=== PATIENT | female | born 1990 | race Caucasian/White ===

== ENCOUNTER 2020-11-17 15:08 | Outpatient (REF) | payer OTHER, SELFPAY | END 2020-11-17 15:09 | disposition home or self-care (01) | LOC: HO.LAB 15:08 | PROVIDERS: PCP Hospitalist; Visit Provider Internal Medicine | DX: Z20.828 Contact with and (suspected) exposure to other viral communicable diseases (principal) | CPT/HCPCS: C9803; U0003 ==

== ENCOUNTER 2021-01-03 17:19 | Emergency (ER) | payer OTHER, SELFPAY ==
--- NOTE | ~2021-01-03 | XR_ITS ---
EXAMINATION: XR CHEST CLINICAL INFORMATION: Respiratory symptoms. COMPARISON: None TECHNIQUE: Frontal view of the chest was obtained. FINDINGS: Focal airspace consolidation within the right lower lung, consistent with pneumonia. Findings may be within the right middle or right lower lobe. No pleural effusion or pneumothorax. Unremarkable cardiomediastinal silhouette. No acute osseous abnormality. XR/XR chest 1V IMPRESSION: Focal pneumonia within the right lower lung.
--- NOTE | ~2021-01-03 | CT_ITS ---
EXAMINATION: CTA CHEST PE STUDY CLINICAL INFORMATION: Elevated D-dimer COMPARISON: No pertinent prior studies are available for comparison. TECHNIQUE: Prior to contrast administration, noncontrast localization images were obtained. After the administration of 70 mL of Omnipaque 350 IV contrast, contiguous thin slice helical images were obtained through the thorax. Reformatted MIP images in the coronal and sagittal planes were obtained at the acquisition workstation. This CT examination was performed using dose optimization techniques as appropriate, variously including the following: *Automated exposure control *Adjustment of mA and/or kV according to patient size (this includes techniques or standardized protocols for targeted exams where dose is matched to indication/reason for exam; i.e. extremities or head) *Use of iterative reconstruction technique DLP: 562 mGy-cm. FINDINGS: The bolus timing on this study was acceptable for visualization of the pulmonary arterial tree. There are no intraluminal pulmonary arterial filling defects present to suggest pulmonary embolism. Patchy groundglass airspace disease is seen more so in the dependent right and left lower lobes. Infectious etiology is suspected. No abnormal pulmonary nodules or masses are appreciated. No significant hilar or mediastinal adenopathy. There is no evidence of pleural effusion or pneumothorax. The heart is normal in size. No evidence of ventricular septal bowing or right heart strain. Great vessels are normal. Otherwise the mediastinum is unremarkable. There is no pericardial effusion or pericardial thickening. Limited evaluation of the upper abdominal viscera is unremarkable. CT/CT angio chest PE protocol IMPRESSION: No evidence for pulmonary emboli. Patchy bilateral airspace disease right more so than left with a posterior dependent predominance. Atypical or viral infectious etiologies would be suspected. VTE: Negative
[2021-01-03 17:34] VITALS: BP 108/64; PULSE 110; RESP 16; TEMP 37.2; O2SAT 95; BMI 45.6
--- NOTE | 2021-01-03 17:36 | ED.URI ---
HPI - URI/Sore Throat General Chief Complaint: Upper Respiratory Symptoms Stated Complaint: Chest pain Time Seen by Provider: 01/03/21 20:35 Source: patient Mode of arrival: ambulatory Limitations: language barrier History of Present Illness HPI Narrative: 30-year-old female with past medical history of obesity presents with 2 days of upper respiratory symptoms, nonproductive cough, chest pain, chest pain on inspiration and fatigue. She does not take any medications, denies past surgical history, and does not report any sick contacts. MD elicited complaint: cough Onset (ago): day(s) (2) Consistency: intermittent Severity: moderate Able to tolerate fluids by mouth: Yes Exacerbating factors: exertion and deep breaths Relieving factors: nothing Associated symptoms: denies other symptoms Treatments prior to arrival: none Related Data Previous Rx's Medication Instructions Recorded azithromycin 250 mg PO DAILY 4 Days #4 tab 01/03/21 benzonatate [Tessalon Perles] 100 mg PO TID PRN #20 cap 01/03/21 cefuroxime axetil 500 mg PO Q12H 7 Days #14 tab 01/03/21 Allergies Allergy/AdvReac Type Severity Reaction Status Date / Time No Known Allergies Allergy Verified 01/03/21 17:35 Review of Systems Review of Systems: Constitutional: No Fever, positive Chills, positive fatigue, positive Malaise ENT/Mouth: No sore throat, no runny nose Eyes: No Discharge Cardiovascular: Positive Chest Pain, No SOB Respiratory: No Cough, No Sputum, No Wheezing, No Smoke Exposure, No Dyspnea Gastrointestinal: No Nausea, No Vomiting, No Diarrhea Genitourinary: no irregular bleeding, No Dysuria, No Urinary Frequency, No Hematuria, No Urinary Incontinence, No Urgency, No Flank Pain, Musculoskeletal: positive Myalgia Skin: No rash Neuro: No Headache Yes all other systems are reviewed and are negative PMFSH Past Medical History Attestation statement: The following information was validated with the patient. Source: old records reviewed Surgical History No pertinent past surgical history Family History Family History Father No problems noted. Mother Diabetes Hypertension Sister In good health Brother In good health Social History Social History Alcohol intake: never Smoking Status: Never smoker Smoked in Last 30 Days: No Use of substances other than those prescribed or required for medical reasons: No Advance Directives: No Advance Directives Information Provided: Yes Physical Exam Vital Signs: Vital Signs: Last Vital Signs Temp 97.9 F 01/03/21 22:00 Pulse 88 01/03/21 22:00 Resp 16 01/03/21 22:00 BP 122/71 01/03/21 22:00 Pulse Ox 97 01/03/21 22:00 Body Mass Index 45.6 Appearance: Alert. Oriented X3. No acute distress. Eyes: Pupils equal, round and reactive to light. ENT: Pharynx normal. Neck: Normal inspection. Neck supple. CVS: Normal heart rate and rhythm. Pulses normal. Respiratory: No respiratory distress. Breath sounds normal. Abdomen: Soft and nontender. Skin: Skin warm and dry. Normal skin color. Normal skin turgor. Extremities: No lower extremity edema. Neuro: No motor deficit. No sensory deficit. Course Course Course Narrative: 30-year-old female with morbid obesity and no significant past medical history presents with several days of upper respiratory symptoms, sharp chest pain, chest pain on inspiration and fatigue. Plan of care is to rule out ACS, D-dimer, COVID swab. X-ray positive for right lower lobe pneumonia, D-dimer is positive at 374, will order CTA to PE. COVID test is positive. 9:[address] a still pending. CTA negative. Plan of care is to discharge home. educational interpreter utilized for all correspondence. Google translate utilize her discharge instructions. Patient verbalized understanding of discharge instructions and agrees plan of care discharge home. MDM - URI/Sore Throat Differential Diagnosis Differential diagnosis: Likely upper respiratory infection, viral infection, bronchitis and influenza Medical Records Attestation: I reviewed the patient's medical records. Lab Data Attestation: I reviewed the patient's lab results. Result diagrams: 01/03/21 18:17 01/03/21 18:17 Labs: Lab Results 01/03/21 01/03/21 01/03/21 Range/Units 18:17 18:17 18:17 WBC 4.2 L (4.8-10.8) X10*3/uL RBC 4.20 (4.20-5.50) X10*6/uL Hgb 11.8 L (12.0-16.0) g/dl Hct 36.4 L (37-47) % MCV 86.7 (80-98) fL MCH 28.1 (27.0-33.0) pg MCHC 32.4 (31.0-35.0) g/dl RDW 14.8 (11.0-16.0) % Plt Count 179 (160-400) X10*3/uL MPV 9.5 (9.4-12.3) fL Immature Gran % (Auto) 0.2 (0.0-0.4) % Neut % (Auto) 67.3 (45-73) % Lymph % (Auto) 26.3 (20-40) % [place] % (Auto) 5.0 (2-11) % Eos % (Auto) 1.0 (0-4) % Baso % (Auto) 0.2 (0-2) % Lymph # (Auto) 1.1 L (1.2-4.9) X10*3/uL [place] # (Auto) 0.2 (0.1-1.2) X10*3/uL Eos # (Auto) 0.0 (0.0-0.4) X10*3/uL Baso # (Auto) 0.0 (0.0-0.2) X10*3/uL Abs Immat Gran (auto) 0.01 (0.00-0.03) X10*3/uL Absolute Neuts (auto) 2.8 (2.0-8.3) X10*3/uL Absolute Nucleated RBC 0.000 (0.0-0.012) X10*3/uL Nucleated RBC % (auto) 0.0 (0.0-0.2) /100WBC PT 13.4 H (10.8-13.0) SEC INR 1.1 (0.9-1.1) APTT 30.4 (24.1-38.0) SEC D-Dimer 374 NG/ML Sodium 138 (135-145) mmol/L Potassium 4.1 (3.3-5.1) mmol/L Chloride 105 (96-108) mmol/L Carbon Dioxide 26 (22-29) mmol/L Anion Gap 11 L (12-20) BUN 11 (9-16) mg/dL Creatinine 0.78 (0.5-1.4) mg/dL Estim Creat Clear Calc 157.3 Estimated GFR > 60 Random Glucose 114 (60-115) mg/dL Calcium 8.1 L (8.4-10.2) mg/dL Troponin I High Sens (<3.5-17.0) ng/L Urine Color Urine Appearance Urine pH (5.0-8.0) Ur Specific Diller (1.005-1.025) Urine Protein (NEG-TRACE) MG/DL Urine Glucose (UA) (NEG) MG/DL Urine Ketones (NEG) MG/DL Urine Blood (NEG) Urine Nitrite (NEG) Ur Leukocyte Esterase (NEG) Urine Test (NEGATIVE) Coronavirus (PCR) (Negative) Influenza Type A (PCR) (Negative) Influenza Type B (PCR) (Negative) RSV RNA Qual (PCR) (Negative) 01/03/21 01/03/21 01/03/21 Range/Units 18:17 18:17 20:13 WBC (4.8-10.8) X10*3/uL RBC (4.20-5.50) X10*6/uL Hgb (12.0-16.0) g/dl Hct (37-47) % MCV (80-98) fL MCH (27.0-33.0) pg MCHC (31.0-35.0) g/dl RDW (11.0-16.0) % Plt Count (160-400) X10*3/uL MPV (9.4-12.3) fL Immature Gran % (Auto) (0.0-0.4) % Neut % (Auto) (45-73) % Lymph % (Auto) (20-40) % [place] % (Auto) (2-11) % Eos % (Auto) (0-4) % Baso % (Auto) (0-2) % Lymph # (Auto) (1.2-4.9) X10*3/uL [place] # (Auto) (0.1-1.2) X10*3/uL Eos # (Auto) (0.0-0.4) X10*3/uL Baso # (Auto) (0.0-0.2) X10*3/uL Abs Immat Gran (auto) (0.00-0.03) X10*3/uL Absolute Neuts (auto) (2.0-8.3) X10*3/uL Absolute Nucleated RBC (0.0-0.012) X10*3/uL Nucleated RBC % (auto) (0.0-0.2) /100WBC PT (10.8-13.0) SEC INR (0.9-1.1) APTT (24.1-38.0) SEC D-Dimer NG/ML Sodium (135-145) mmol/L Potassium (3.3-5.1) mmol/L Chloride (96-108) mmol/L Carbon Dioxide (22-29) mmol/L Anion Gap (12-20) BUN (9-16) mg/dL Creatinine (0.5-1.4) mg/dL Estim Creat Clear Calc Estimated GFR Random Glucose (60-115) mg/dL Calcium (8.4-10.2) mg/dL Troponin I High Sens < 3.5 (<3.5-17.0) ng/L Urine Color YELLOW Urine Appearance CLEAR Urine pH 7.0 (5.0-8.0) Ur Specific Diller 1.020 (1.005-1.025) Urine Protein NEG (NEG-TRACE) MG/DL Urine Glucose (UA) NEG (NEG) MG/DL Urine Ketones NEG (NEG) MG/DL Urine Blood NEG (NEG) Urine Nitrite NEG (NEG) Ur Leukocyte Esterase NEG (NEG) Urine Test (NEGATIVE) Coronavirus (PCR) POSITIVE A (Negative) Influenza Type A (PCR) NEGATIVE (Negative) Influenza Type B (PCR) NEGATIVE (Negative) RSV RNA Qual (PCR) NEGATIVE (Negative) 01/03/21 Range/Units 20:16 WBC (4.8-10.8) X10*3/uL RBC (4.20-5.50) X10*6/uL Hgb (12.0-16.0) g/dl Hct (37-47) % MCV (80-98) fL MCH (27.0-33.0) pg MCHC (31.0-35.0) g/dl RDW (11.0-16.0) % Plt Count (160-400) X10*3/uL MPV (9.4-12.3) fL Immature Gran % (Auto) (0.0-0.4) % Neut % (Auto) (45-73) % Lymph % (Auto) (20-40) % [place] % (Auto) (2-11) % Eos % (Auto) (0-4) % Baso % (Auto) (0-2) % Lymph # (Auto) (1.2-4.9) X10*3/uL [place] # (Auto) (0.1-1.2) X10*3/uL Eos # (Auto) (0.0-0.4) X10*3/uL Baso # (Auto) (0.0-0.2) X10*3/uL Abs Immat Gran (auto) (0.00-0.03) X10*3/uL Absolute Neuts (auto) (2.0-8.3) X10*3/uL Absolute Nucleated RBC (0.0-0.012) X10*3/uL Nucleated RBC % (auto) (0.0-0.2) /100WBC PT (10.8-13.0) SEC INR (0.9-1.1) APTT (24.1-38.0) SEC D-Dimer NG/ML Sodium (135-145) mmol/L Potassium (3.3-5.1) mmol/L Chloride (96-108) mmol/L Carbon Dioxide (22-29) mmol/L Anion Gap (12-20) BUN (9-16) mg/dL Creatinine (0.5-1.4) mg/dL Estim Creat Clear Calc Estimated GFR Random Glucose (60-115) mg/dL Calcium (8.4-10.2) mg/dL Troponin I High Sens (<3.5-17.0) ng/L Urine Color Urine Appearance Urine pH (5.0-8.0) Ur Specific [place]iller (1.005-1.025) Urine Protein (NEG-TRACE) MG/DL Urine Glucose (UA) (NEG) MG/DL Urine Ketones (NEG) MG/DL Urine Blood (NEG) Urine Nitrite (NEG) Ur Leukocyte Esterase (NEG) Urine Test NEGATIVE (NEGATIVE) Coronavirus (PCR) (Negative) Influenza Type A (PCR) (Negative) Influenza Type B (PCR) (Negative) RSV RNA Qual (PCR) (Negative) Imaging Data Chest x-ray: Attestation: I personally reviewed and interpreted this imaging study as follows: Radiologist's impression: EXAMINATION: XR CHEST CLINICAL INFORMATION: Respiratory symptoms. COMPARISON: None TECHNIQUE: Frontal view of the chest was obtained. FINDINGS: Focal airspace consolidation within the right lower lung, consistent with pneumonia. Findings may be within the right middle or right lower lobe. No pleural effusion or pneumothorax. Unremarkable cardiomediastinal silhouette. No acute osseous abnormality. XR/XR chest 1V IMPRESSION: Focal pneumonia within the right lower lung. CT PE study: Attestation: I personally reviewed and interpreted this imaging study as follows: Radiologist's impression: EXAMINATION: CTA CHEST PE STUDY CLINICAL INFORMATION: Elevated D-dimer COMPARISON: No pertinent prior studies are available for comparison. TECHNIQUE: Prior to contrast administration, noncontrast localization images were obtained. After the administration of 70 mL of Omnipaque 350 IV contrast, contiguous thin slice helical images were obtained through the thorax. Reformatted MIP images in the coronal and sagittal planes were obtained at the acquisition workstation. This CT examination was performed using dose optimization techniques as appropriate, variously including the following: *Automated exposure control *Adjustment of mA and/or kV according to patient size (this includes techniques or standardized protocols for targeted exams where dose is matched to indication/reason for exam; i.e. extremities or head) *Use of iterative reconstruction technique DLP: 562 mGy-cm. FINDINGS: The bolus timing on this study was acceptable for visualization of the pulmonary arterial tree. There are no intraluminal pulmonary arterial filling defects present to suggest pulmonary embolism. Patchy groundglass airspace disease is seen more so in the dependent right and left lower lobes. Infectious etiology is suspected. No abnormal pulmonary nodules or masses are appreciated. No significant hilar or mediastinal adenopathy. There is no evidence of pleural effusion or pneumothorax. The heart is normal in size. No evidence of ventricular septal bowing or right heart strain. Great vessels are normal. Otherwise the mediastinum is unremarkable. There is no pericardial effusion or pericardial thickening. Limited evaluation of the upper abdominal viscera is unremarkable. CT/CT angio chest PE protocol IMPRESSION: No evidence for pulmonary emboli. Patchy bilateral airspace disease right more so than left with a posterior dependent predominance. Atypical or viral infectious etiologies would be suspected. VTE: Negative ECG Data Attestation: I personally reviewed and interpreted this ECG as follows: ECG interpretation date: 01/03/21 ECG interpretation time: 17:56 Interpretation: Vent. rate 100 BPM DE interval 130 ms QRS duration 86 ms QT/QTc 336/433 ms P-R-T axes 52 28 25 Normal sinus rhythm Normal ECG No previous ECGs available Discharge Plan Discharge Clinical Impression: Pneumonia, COVID-19 Patient Disposition: Home, Self-Care Instructions: Pneumonia (ED), COVID-19 (Coronavirus Disease 2019) (ED) Additional Instructions: Te evaluaron por dolor en el pecho del lado derecho. Usted es positivo para COVID-19. Por favor, mantenga el aislamiento social seg?n las pautas estatales y federales. Las radiograf?as indican neumon?a. Por favor, tome azitromicina y cefuroxime dirigidos. Estos medicamentos son antibi?ticos y es necesario completar ambos cursos de antibi?ticos para ally cobertura adecuada. Use inhalador de albuterol seg?n sea necesario para la dificultad para respirar. Use Tessalon Perles para toser. Utilice gómez espir?metro de incentivo para ayudar a promover la funci?n pulmonar. Utilice martinez espir?metro de incentivo 10 veces por hora mientras est? despierto. Si los s?ntomas empeoran, tiene dificultad para respirar, debilidad o cualquier otro s?ntoma relacionado, por favor regrese al departamento de emergencias inmediatamente. [place] por elegir martinez departamento de emergencias para la evaluaci?n. Por favor, zack un seguimiento con el m?dico de atenci?n primaria seg?n sea necesario. Regrese al servicio de urgencias para cualquier s?ntoma nuevo, preocupante o que empeore. You were evaluated for right-sided chest pain. You are positive for COVID-19. Please maintain social isolation per State and Federal guidelines. X-rays indicates pneumonia. Please take azithromycin and cefuroxime directed. These medications are antibiotics and you need to complete both courses of antibiotics for proper coverage. Use albuterol inhaler as needed for shortness of breath. Use Tessalon Perles for coughing. Please use your incentive spirometer to help promote lung function. Use this incentive spirometer 10 times an hour while awake. If symptoms get worse, you have shortness of breath, weakness or any other concerning symptoms please return to the emergency department immediately. Thank you for choosing this emergency department for evaluation. Please follow-up with primary care physician as needed. Return to the emergency department for any new, concerning, or worsening symptoms. Prescriptions: New cefuroxime axetil 500 mg tablet 500 mg PO Q12H 7 Days Qty: 14 RF: 0 azithromycin 250 mg tablet 250 mg PO DAILY 4 Days Qty: 4 RF: 0 benzonatate [Tessalon Perles] 100 mg capsule 100 mg PO TID PRN (Reason: cough) Qty: 20 RF: 0 Interventions: ED Discharge Assessment Last Done: 01/03/21 23:08 Discharge Date/Time: 01/03/21 23:09
--- NOTE | 2021-01-03 17:39 | ECG_ITS ---
Test Reason : DISPENA Blood Pressure : / mmHG Vent. Rate : 100 BPM Atrial Rate : 100 BPM P-R Int : 130 ms QRS Dur : 086 ms QT Int : 336 ms P-R-T Axes : 052 028 025 degrees QTc Int : 433 ms Normal sinus rhythm Normal ECG No previous ECGs available Referred By: Anika Tam Electronically Signed By:WILBER KILPATRICK MD
[2021-01-03 18:24] LABS: MANUAL DIFF FLAG NO
[2021-01-03 18:25] LABS: Basophils Percent Auto 0.2 % (0-2); Hematocrit 36.4 % (37-47); Hemoglobin 11.8 g/dl (12.0-16.0); Imm Gran Abs Auto 0.01 X10*3/uL (0.00-0.03); Imm Gran Pct Auto 0.2 % (0.0-0.4); Lymphocytes Absolute Auto 1.1 X10*3/uL (1.2-4.9); Lymphocytes Percent Auto 26.3 % (20-40); Mean Corpuscular HGB Conc 32.4 g/dl (31.0-35.0); Mean Corpuscular Hemoglobin 28.1 pg (27.0-33.0); Mean Corpuscular Volume 86.7 fL (80-98); Mean Platelet Volume 9.5 fL (9.4-12.3); Monocytes Absolute Auto 0.2 X10*3/uL (0.1-1.2); Neutrophils Absolute Auto 2.8 X10*3/uL (2.0-8.3); Neutrophils Percent Auto 67.3 % (45-73); Platelet Count 179 X10*3/uL (160-400); Red Cell Distribution Width 14.8 % (11.0-16.0); White Blood Count 4.2 X10*3/uL (4.8-10.8)
[2021-01-03 18:33] LABS: INTERNATIONAL NORM RATIO 1.1 (0.9-1.1); Prothrombin Time 13.4 SEC (10.8-13.0)
[2021-01-03 18:36] LABS: D Dimer 374 NG/ML; Partial Thromboplastin Time 30.4 SEC (24.1-38.0)
[2021-01-03 18:45] LABS: Anion Gap 11 (12-20); Blood Urea Nitrogen 11 mg/dL (9-16); Calcium 8.1 mg/dL (8.4-10.2); Carbon Dioxide 26 mmol/L (22-29); Chloride 105 mmol/L (96-108); Creatinine Clr Calc Pharmacy 157.3; Estimated Glomerular Filt Rate > 60; Glucose Random 114 mg/dL (60-115); Potassium 4.1 mmol/L (3.3-5.1); Sodium 138 mmol/L (135-145)
[2021-01-03 18:51] LABS: Troponin-I High Sensitivity < 3.5 ng/L (<3.5-17.0)
[2021-01-03 19:01] VITALS: BP 136/64; PULSE 98; RESP 16; TEMP 38.4; O2SAT 97
[2021-01-03 19:03] LABS: Influenza A PCR NEGATIVE (Negative); Influenza B PCR NEGATIVE (Negative); Resp Syncy Virus RNA Qual PCR NEGATIVE (Negative); SARS COV2 PCR INHOUSE POSITIVE (Negative)
--- NOTE | 2021-01-03 19:43 | PC.NURSE ---
ASSUMED CARE OF PT. PT RESTING IN STETCHER. PT AWAITING FOR CTA. PT ALERT, RESPIRATIONS N/L. SKIN W/D. WILL CONTINUE TO MONTIOR PT.
[2021-01-03] MEDS: Azithromycin 500 MG TABLET PO (19:53)
[2021-01-03] MEDS: Albuterol Sulfate 90 MCG 8 GM INHALER 2 PUFF INHALE (19:53)
[2021-01-03] MEDS: Benzonatate 100 MG CAPSULE 200 MG PO (19:53)
[2021-01-03] MEDS: Acetaminophen 325 MG TABLET 650 MG PO (19:53)
--- NOTE | 2021-01-03 19:59 | PC.NURSE ---
PT MEDICATED PER EMAR. PT RESTING QUIETLY IN NAD. WILL CONTINUE TO MONITOR PT.
[2021-01-03 20:23] LABS: Glucose Urine UA NEG (NEG); Leukocyte Esterase Urine NEG (NEG); Nitrite Urine NEG (NEG); Urine Blood NEG (NEG); Urine Ketones NEG (NEG); Urine Protein NEG (NEG-TRACE)
[2021-01-03 20:24] LABS: Appearance Urine CLEAR; Color Urine YELLOW
[2021-01-03 20:24] LABS: UPreg QC Valid OK
[2021-01-03 20:25] LABS: Urine Pregnancy NEGATIVE (NEGATIVE)
[2021-01-03 22:00] VITALS: BP 122/71; PULSE 88; RESP 16; TEMP 36.6; O2SAT 97
[2021-01-03] MEDS: iohexoL 350 MG/ML 100 ML INFUS..BTL IV (22:07)
--- NOTE | 2021-01-03 22:51 | PC.NURSE ---
PT AWAITING FOR DISCHARGE INSTRUCTIONS.
== END 2021-01-03 23:09 | disposition home or self-care (01) ==
PROVIDERS: Nurse Practitioner Family; Emergency Provider Emergency Medicine; PCP Hospitalist
DX: U07.1 COVID-19 (principal); J12.82 Pneumonia due to coronavirus disease 2019
CPT/HCPCS: 0241U; 36415; 71045; 71275; 80048; 81003; 81025; 84484; 85025; 85379; 85610; 85730; 93005; 99284; Q9967

== ENCOUNTER 2021-01-13 14:09 | Outpatient (REF) | payer OTHER, SELFPAY | END 2021-01-13 14:10 | disposition home or self-care (01) | LOC: HO.LAB 14:09 | PROVIDERS: PCP Hospitalist; Visit Provider Internal Medicine | DX: Z20.822 Contact with and (suspected) exposure to COVID-19 (principal) | CPT/HCPCS: 36415; C9803; U0003; U0005 ==

== ENCOUNTER 2021-01-28 14:24 | Outpatient (REF) | payer OTHER, SELFPAY | END 2021-01-28 14:25 | disposition home or self-care (01) | LOC: HO.LAB 14:24 | PROVIDERS: Visit Provider Hospitalist | DX: Z13.89 Encounter for screening for other disorder (principal) ==

== ENCOUNTER 2021-01-30 10:35 | Outpatient (REF) | payer OTHER, SELFPAY ==
[2021-01-30 11:39] LABS: Hematocrit 34.7 % (37-47); Hemoglobin 10.8 g/dl (12.0-16.0); Mean Corpuscular HGB Conc 31.1 g/dl (31.0-35.0); Mean Corpuscular Hemoglobin 27.7 pg (27.0-33.0); Mean Platelet Volume 9.9 fL (9.4-12.3); Platelet Count 298 X10*3/uL (160-400); Red Cell Distribution Width 16.3 % (11.0-16.0); White Blood Count 9.2 X10*3/uL (4.8-10.8)
[2021-01-30 12:01] LABS: Alanine Aminotransferase 11 U/L (0-31); Albumin Level 4.1 g/dL (3.5-5.0); Alkaline Phosphatase 57 U/L (39-117); Anion Gap 10 (12-20); Aspartate Amino Transferase 12 U/L (5-31); Bilirubin Direct 0.3 mg/dL (0.0-0.5); Bilirubin Total 0.6 mg/dL (0.0-1.0); Blood Urea Nitrogen 13 mg/dL (9-16); Carbon Dioxide 29 mmol/L (22-29); Chloride 106 mmol/L (96-108); Cholesterol 156 mg/dL; Estimated Glomerular Filt Rate > 60; Glucose Fasting 89 mg/dL (60-99); HDL Cholesterol 36 mg/dL; LDL Cholesterol Calculated 106 mg/dl; Potassium 4.3 mmol/L (3.3-5.1); Sodium 141 mmol/L (135-145); Total Protein 7.7 g/dL (6.5-8.0); Triglycerides 74 mg/dL
[2021-01-30 12:11] LABS: TSH reflex Free T4 1.11 uIU/mL (0.32-4.0)
== END 2021-01-30 10:36 | disposition home or self-care (01) ==
LOC: HO.LAB 10:35
PROVIDERS: PCP Hospitalist; Visit Provider Hospitalist
DX: Z00.00 Encounter for general adult medical examination without abnormal findings (principal)
CPT/HCPCS: 36415; 80048; 80061; 80076; 84443; 85027

== ENCOUNTER 2021-02-24 09:25 | Outpatient (REF) | payer OTHER, SELFPAY ==
[2021-02-24 10:03] LABS: MANUAL DIFF FLAG NO
[2021-02-24 10:13] LABS: Basophils Percent Auto 0.4 % (0-2); Eosinophils Absolute Auto 0.2 X10*3/uL (0.0-0.4); Eosinophils Percent Auto 1.9 % (0-4); Hematocrit 35.6 % (37-47); Hemoglobin 10.9 g/dl (12.0-16.0); Imm Gran Abs Auto 0.05 X10*3/uL (0.00-0.03); Imm Gran Pct Auto 0.6 % (0.0-0.4); Lymphocytes Absolute Auto 1.9 X10*3/uL (1.2-4.9); Lymphocytes Percent Auto 22.4 % (20-40); Mean Corpuscular HGB Conc 30.6 g/dl (31.0-35.0); Mean Corpuscular Hemoglobin 27.3 pg (27.0-33.0); Mean Corpuscular Volume 89.2 fL (80-98); Mean Platelet Volume 9.7 fL (9.4-12.3); Monocytes Absolute Auto 0.5 X10*3/uL (0.1-1.2); Monocytes Percent Auto 5.7 % (2-11); Neutrophils Absolute Auto 5.9 X10*3/uL (2.0-8.3); Platelet Count 314 X10*3/uL (160-400); Red Blood Count 3.99 X10*6/uL (4.20-5.50); Red Cell Distribution Width 15.6 % (11.0-16.0); White Blood Count 8.6 X10*3/uL (4.8-10.8)
[2021-02-24 10:25] LABS: Alanine Aminotransferase 13 U/L (0-31); Albumin Level 3.9 g/dL (3.5-5.0); Alkaline Phosphatase 55 U/L (39-117); Anion Gap 10 (12-20); Aspartate Amino Transferase 11 U/L (5-31); Bilirubin Total 0.5 mg/dL (0.0-1.0); Blood Urea Nitrogen 13 mg/dL (9-16); Calcium 8.3 mg/dL (8.4-10.2); Carbon Dioxide 28 mmol/L (22-29); Chloride 108 mmol/L (96-108); Estimated Glomerular Filt Rate > 60; Glucose Random 106 mg/dL (60-115); Potassium 4.7 mmol/L (3.3-5.1); Sodium 141 mmol/L (135-145); Total Protein 7.6 g/dL (6.5-8.0)
== END 2021-02-24 09:26 | disposition home or self-care (01) ==
LOC: HO.LAB 09:25
PROVIDERS: PCP Hospitalist; Visit Provider Family Medicine
DX: N92.0 Excessive and frequent menstruation with regular cycle (principal); N39.0 Urinary tract infection, site not specified
CPT/HCPCS: 36415; 80053; 85025; 87086

== ENCOUNTER 2021-03-05 15:36 | Outpatient (REF) | payer OTHER, SELFPAY ==
--- NOTE | ~2021-03-05 | US_ITS ---
EXAMINATION:US pelvic complete CLINICAL INFORMATION: Reason for Exam N92.0 - Excessive and frequent menstruation with regular ... COMPARISON: No priors available. LMP: 03/01/2021 FINDINGS: UTERUS: The uterus is anteverted. Size: 7.4 x 3.6 cm. Uterine mass: There is no uterine mass. Cervix: Grossly unremarkable. Endometrium: No ultrasound evidence of endometrial lesion. endometrial thickness measures 0.7 cm ADNEXA: Normal Right ovary: Normal in size. Left ovary: Normal in size. Doppler exam: Normal Doppler flow identified in both ovaries. FREE FLUID: Trace amount of free fluid. OTHER FINDINGS: None US/US pelvic complete IMPRESSION: Patient declined transvaginal ultrasound. Transabdominal ultrasound is normal.
== END 2021-03-05 15:37 | disposition home or self-care (01) ==
LOC: HO.US 15:36
PROVIDERS: PCP Internal Medicine; Visit Provider Family Medicine
DX: N92.0 Excessive and frequent menstruation with regular cycle (principal)
CPT/HCPCS: 76856

== ENCOUNTER → 2021-03-13 12:31 | Outpatient (BNVA) | payer OTHER, SELFPAY | PROVIDERS: PCP Internal Medicine; Visit Provider Advanced Practice Midwife | DX: N92.0 Excessive and frequent menstruation with regular cycle (principal); N92.6 Irregular menstruation, unspecified; E66.01 Morbid (severe) obesity due to excess calories | CPT/HCPCS: 81025; 99202 ==

== ENCOUNTER 2021-08-27 08:52 | Outpatient (REF) | payer OTHER, SELFPAY ==
[2021-08-27 10:40] LABS: Hematocrit 34.3 % (37-47); Hemoglobin 10.7 g/dl (12.0-16.0); Mean Corpuscular HGB Conc 31.2 g/dl (31.0-35.0); Mean Corpuscular Hemoglobin 26.1 pg (27.0-33.0); Mean Corpuscular Volume 83.7 fL (80-98); Mean Platelet Volume 9.8 fL (9.4-12.3); Platelet Count 292 X10*3/uL (160-400); Red Cell Distribution Width 16.5 % (11.0-16.0); White Blood Count 9.5 X10*3/uL (4.8-10.8)
== END 2021-08-27 08:53 | disposition home or self-care (01) ==
LOC: HO.WFDLDS 08:52
PROVIDERS: Visit Provider Hospitalist
DX: D50.0 Iron deficiency anemia secondary to blood loss (chronic) (principal)
CPT/HCPCS: 36415; 85027

== ENCOUNTER 2022-10-16 18:04 | Emergency (ER) | payer OTHER, SELFPAY ==
--- NOTE | 2022-10-16 18:42 | ED.URI ---
HPI - URI/Sore Throat General Chief Complaint: General Medical Stated Complaint: fever,body aches Time Seen by Provider: 10/16/22 18:52 Source: patient Mode of arrival: ambulatory Limitations: no limitations History of Present Illness HPI Narrative: Patient is a 32 female with no past medical history, presenting to ED for complaints of fever, body aches, headache, nasal congestion, rhinorrhea with symptom onset yesterday. Reports that her friend is ill with similar symptoms. Related Data Previous Rx's Medication Instructions Recorded levonorgestrel-ethinyl estradiol 1 tab PO DAILY #84 tabs 03/13/21 0.1 mg-20 mcg tablet ferrous sulfate 325 mg (65 mg 325 mg PO BID 1 month #60 tabs 08/31/21 iron) tablet (Feosol) Allergies Allergy/AdvReac Type Severity Reaction Status Date / Time No Known Allergies Allergy Verified 08/27/21 08:43 Review of Systems Review of Systems: Constitutional: Positive fever. Positive chills. No weakness. Positive fatigue. Positive body aches ENT/ Mouth: No Ear Pain, positive Nasal Congestion, no sore throat, No Rhinorrhea, No Swallowing Difficulty Skin: No rash or itching. Cardiovascular: No chest pain. No palpitations. Respiratory: No shortness of breath. no cough. No sputum production. Gastrointestinal: No nausea. No vomiting. No diarrhea. No abdominal pain. Genitourinary: No burning micturition. No urinary frequency. Neurologic: No headache. No dizziness. No syncope. No numbness or tingling in the extremities. Yes all other systems are reviewed and are negative PMFSH Past Medical History Attestation statement: The following information was validated with the patient. Source: old records reviewed Surgical History No pertinent past surgical history Family History Family History Father No problems noted. Mother Diabetes Hypertension Sister In good health Brother In good health Social History Social History Alcohol intake: never Advance Directives: No Advance Directives Information Provided: Yes Gender identity: Female Physical Exam Vital Signs: Vital Signs: Last Vital Signs Temp 98.3 F 10/16/22 18:47 Pulse 94 10/16/22 18:47 Resp 18 10/16/22 18:47 BP 125/64 10/16/22 18:47 Pulse Ox 97 10/16/22 18:47 O2 Del Method 10/16/22 18:47 BMI result Body Mass Index 45.6 Vital signs have been reviewed as normal and appeared to be correct. Blood pressure normal.? Heart rate normal.? Respiration rate normal. Temperature normal.? Oxygen saturation normal. Appearance: Alert.?Oriented to person, place and time. No acute distress.?Normal affect. Eyes: Pupils equal, round and reactive to light.? ENT: TM normal bilaterally. Pharynx normal.?? Neck: Normal inspection.? Neck supple.??No cervical adenopathy CVS: Heart sounds normal. Normal heart rate and rhythm.? Pulses normal.?? Respiratory: No respiratory distress.? Lung sounds clear to auscultation bilaterally?? Abdomen: Soft and non-tender. Normoactive bowel sounds. Skin: Skin warm and dry.? Normal skin color.? ? Extremities: No lower extremity edema.? Neuro: Moves all extremities spontaneously. Sensation intact bilaterally. No motor deficits. Ambulates with normal steady gait. Course Course Course Narrative: Patient is a 32-year-old female with no past medical history, presenting for evaluation of upper respiratory symptoms. COVID-19 testing negative. Influenza testing positive. Offered Tamiflu, reviewed indications and possible side effects, patient declined. At this time history and physical exam not consistent with ACS/PE/pneumonia. Well-appearing, nontoxic, afebrile, no tachycardia or tachypnea/hypoxia. Speaking clear full sentences, ambulatory with steady gait. Discussed conservative treatment including rest, hydration, Tylenol/ibuprofen as needed for fever and body aches, saline nasal spray, humidifier, [id number] cold medication. Advised to follow-up with primary care provider as needed, discussed reasons to return back to the emergency department. All questions were answered. Patient discharged home in stable condition. MDM - URI/Sore Throat Medical Records Attestation: I reviewed the patient's medical records. Lab Data Attestation: I reviewed the patient's lab results. Labs: Lab Results 10/16/22 10/16/22 Range/Units 18:53 18:53 COVID-19 (RICHARD) Negative (Negative) COVID-19 Clin Com See Note Influenza Type A (FAYE) Positive A (Negative) Influenza Type B (FAYE) Negative (Negative) Influenza A & B Note See Note Discharge Plan Discharge Clinical Impression: Influenza A Patient Disposition: Home, Self-Care Instructions: Upper Respiratory Infection (ED), Influenza (ED) Additional Instructions: Be sure to rest, stay well hydrated drinking plenty of fluids, eat small frequent meals. You can take ibuprofen 200 mg, 3 tablets (600mg) every 6-8 hours as needed for pain, in addition to Tylenol 500 mg, 2 tablets (1,000mg) every 4-6 hours as needed for pain, but not to exceed 3 doses daily (3,000mg).? [id number] cold medications may be helpful as well for symptoms. Saline nasal spray, humidifier may be helpful for nasal congestion. You may return to the emergency department with any new or worsening symptoms or concerns. Follow-up with your primary care provider as needed. Prescriptions: No Action ferrous sulfate [Feosol] 325 mg (65 mg iron) tablet 325 mg PO BID 30 Days Qty: 60 1RF levonorgestrel-ethinyl estrad 0.1-20 mg-mcg tablet 1 tab PO DAILY Qty: 84 4RF Referrals: Emily Ho NP [Primary Care Provider] -
[2022-10-16 18:47] VITALS: BP 125/64; PULSE 94; RESP 18; TEMP 36.8; O2SAT 97; BMI 45.6
[2022-10-16 19:13] LABS: COVID-19 Test Negative (Negative); IDNOW Serial# 16C4AD1C
[2022-10-16 19:16] LABS: IDNOW Serial# BCCEAD1C; Influenza A Positive (Negative); Influenza B2 Negative (Negative)
== END 2022-10-16 19:23 | disposition home or self-care (01) ==
LOC: HO.ED 19:00
PROVIDERS: Nurse Practitioner Family; Emergency Provider Emergency Medicine; PCP Hospitalist
DX: J11.1 Influenza due to unidentified influenza virus with other respiratory manifestations (principal); R50.9 Fever, unspecified; Z20.822 Contact with and (suspected) exposure to COVID-19
CPT/HCPCS: 87502; 87635; 99282; 99283

== ENCOUNTER 2023-04-13 06:36 | Emergency (ER) | payer OTHER, SELFPAY ==
--- NOTE | ~2023-04-13 | CT_ITS ---
EXAMINATION: CT ABDOMEN AND PELVIS WITHOUT CONTRAST CLINICAL INFORMATION: Left flank pain with question of nephrolithiasis and pyelonephritis COMPARISON: Ultrasound pelvis 03/05/2021, CT angiogram chest 01/03/2021 TECHNIQUE: Multidetector volumetric imaging was performed from the superior aspect of the liver through the pubic symphysis. Sagittal and coronal reformatted images were obtained on the technologist's workstation. This CT examination was performed using dose optimization techniques as appropriate, variously including the following: *Automated exposure control *Adjustment of mA and/or kV according to patient size (this includes techniques or standardized protocols for targeted exams where dose is matched to indication/reason for exam; i.e. extremities or head) *Use of iterative reconstruction technique DLP: 1136 mGy-cm FINDINGS: LUNG BASES: The visualized lung bases are unremarkable. A small right anterior preparacardiac lymph node is seen LIVER, GALLBLADDER, AND BILIARY TREE: The liver is enlarged measuring 21.5 cm in cephalocaudad dimension and demonstrates slightly decreased attenuation suggesting hepatic steatosis. In size, shape, and attenuation. No focal hepatic lesion or biliary ductal dilatation is present. The gallbladder is unremarkable with no evidence of radiopaque gallstones, gallbladder wall thickening, or obvious pericholecystic inflammatory changes. PANCREAS: Unremarkable. SPLEEN: Spleen is enlarged measuring 15.5 cm in greatest transverse dimension. ADRENAL GLANDS: Unremarkable. KIDNEYS AND URETERS: The kidneys are normal in size, shape, and attenuation. No hydronephrosis, hydroureter, or calculi seen. No perinephric stranding. BLADDER: Unremarkable. GASTROINTESTINAL TRACT: The small and large bowel are unremarkable. The appendix is not seen but there is no evidence of appendicitis evidence of appendicitis. ABDOMINAL WALL: No significant hernia is appreciated. LYMPH NODES: Normal. VASCULAR: Unremarkable. PELVIC VISCERA: The uterus and adnexa are unremarkable. OSSEOUS STRUCTURES: Unremarkable. CT/CT abdomen pelvis wo IV con IMPRESSION: 1. A cause for the patient's left flank pain has not been found. 2. No renal calculi are seen. 3. Incidental note made of an enlarged fatty liver and splenomegaly. Fleischner guidelines were followed.
[2023-04-13 07:06] VITALS: BP 121/44; PULSE 62; RESP 19; TEMP 36.7; O2SAT 97
[2023-04-13 07:15] VITALS: BP 121/44; PULSE 62; RESP 20; O2SAT 97; BMI 42.6
[2023-04-13 08:07] LABS: MANUAL DIFF FLAG NO
[2023-04-13] MEDS: Ketorolac Tromethamine 15 MG/ML VIAL IVPUSH (08:09)
[2023-04-13] MEDS: 0.9 % Sodium Chloride 1,000 ML 999 ML IV (08:09)
[2023-04-13] MEDS: ondansetron HCL 4 MG/2 ML VIAL IVPUSH (08:09)
[2023-04-13 08:11] LABS: Basophils Percent Auto 0.3 % (0-2); Eosinophils Absolute Auto 0.1 X10*3/uL (0.0-0.4); Eosinophils Percent Auto 1.4 % (0-4); Hematocrit 35.4 % (37.0-47.0); Hemoglobin 11.6 g/dl (12.0-16.0); Imm Gran Abs Auto 0.03 X10*3/uL (0.00-0.03); Imm Gran Pct Auto 0.3 % (0.0-0.4); Lymphocytes Absolute Auto 1.5 X10*3/uL (1.2-4.9); Lymphocytes Percent Auto 14.9 % (20-40); Mean Corpuscular HGB Conc 32.8 g/dl (31.0-35.0); Mean Corpuscular Hemoglobin 28.7 pg (27.0-33.0); Mean Corpuscular Volume 87.6 fL (80.0-98.0); Mean Platelet Volume 9.5 fL (9.4-12.3); Monocytes Absolute Auto 0.5 X10*3/uL (0.1-1.2); Monocytes Percent Auto 5.6 % (2-11); Neutrophils Absolute Auto 7.5 x10*3/uL (2.0-8.3); Neutrophils Percent Auto 77.5 % (45-73); Platelet Count 246 X10*3/uL (160-400); Red Blood Count 4.04 X10*6/uL (4.20-5.50); Red Cell Distribution Width 13.6 % (11.0-16.0); White Blood Count 9.7 X10*3/uL (4.8-10.8)
[2023-04-13 08:19] LABS: Appearance Urine Turbid; Color Urine Yellow; Glucose Urine UA Negative (Negative); Leukocyte Esterase Urine Moderate (2+) (Negative); Nitrite Urine Negative (Negative); PH 5.5 (5.0-9.0); Specific Gravity - Urine >= 1.030 (1.005-1.025); UMIC TRIGGER UACC YES; Urine Blood Negative (Negative); Urine Ketones Trace mg/dL (Negative); Urine Protein 30 (1+) mg/dL (Neg-Trace)
[2023-04-13 08:31] LABS: Bacteria Urine 3+ (None Seen); Hyaline Casts Urine 0-2 /LPF (0-2); Other Crystals Urine Present; RBC Urine 0-2 /HPF (0-2); Squamous Epithelial Cell Urine >20 /HPF (0-2); UACC Culture Trigger YES
[2023-04-13 08:39] LABS: Alanine Aminotransferase 12 U/L (0-31); Albumin Level 3.7 g/dL (3.5-5.0); Alkaline Phosphatase 52 U/L (39-117); Anion Gap 12 (12-20); Aspartate Amino Transferase 13 U/L (5-31); Bilirubin Total 0.5 mg/dL (0.0-1.0); Blood Urea Nitrogen 15 mg/dL (9-16); Carbon Dioxide 24 mmol/L (22-29); Chloride 108 mmol/L (96-108); Creatinine Clr Calc Pharmacy 119.4; Estimated Glomerular Filt Rate > 60; Glucose Random 104 mg/dL (60-115); Lipase 25 U/L (8-78); Potassium 4.3 mmol/L (3.3-5.1); Sodium 140 mmol/L (135-145); Total Protein 6.9 g/dL (6.5-8.0)
[2023-04-13 08:42] LABS: HCG Quantitative < 2 mIU/mL
--- NOTE | 2023-04-13 09:41 | ED.ABDPAIN ---
HPI - Abdominal Pain General Chief Complaint: Abdominal Pain Stated Complaint: Abdominal pain left side Time Seen by Provider: 04/13/23 07:02 Source: patient Mode of arrival: ambulatory Limitations: language barrier (Danish speaking only, family support specialist used.) History of Present Illness HPI narrative: 33-year-old female who presents emergency department for evaluation of left flank pain x1 week. She states the pain was initially intermittent and then became constant. She states 1 week prior she had left side pain which she describes as a sharp pain that did radiate to her groin. She did notice urinary frequency and was peeing small amounts but no dysuria. She did not noted any hematuria. She states that today at 01:00 hours the pain came back and was severe, 08/30. The patient took Motrin with only minimal relief for pain. She states this is 1st episode of this type of pain. She does not know when her last menstrual period was since she has irregular menses. Related Data Previous Rx's Medication Instructions Recorded levonorgestrel-ethinyl estradiol 1 tab PO DAILY #84 tabs 03/13/21 0.1 mg-20 mcg tablet ferrous sulfate 325 mg (65 mg 325 mg PO BID 1 month #60 tabs 08/31/21 iron) tablet (Feosol) cephalexin 500 mg capsule 500 mg PO TID 5 days #15 caps 04/13/23 Allergies Allergy/AdvReac Type Severity Reaction Status Date / Time No Known Allergies Allergy Verified 08/27/21 08:43 Review of Systems Review of Systems Yes all other systems are reviewed and are negative [facility] Past Medical History [facility] Narrative: Past medical history: None. Past surgical history: None. Social history: She denies tobacco use, she denies alcohol use. She does smoke marijuana. Surgical History No pertinent past surgical history Family History Family History Father No problems noted. Mother Diabetes Hypertension Sister In good health Brother In good health Social History Social History Alcohol intake: never Smoked in Last 30 Days: No Use of substances other than those prescribed or required for medical reasons: No Advance Directives: No Patient : No Gender identity: Female Physical Exam ED Vital Signs: Vital Signs - 24 hr 04/13/23 07:06 04/13/23 07:15 04/13/23 10:00 Temperature 98.1 F Pulse Rate 62 62 55 Respiratory Rate 19 20 16 Blood Pressure 121/44 L 121/44 L 132/69 Pulse Oximetry 97 97 100 Oxygen Delivery Method Room Air Room Air Room Air BMI result Body Mass Index 42.6 Const Other: Awake, alert, female patient, pleasant, cooperative in no distress, elevated BMI 42.6 HENMT Head: Yes normal to inspection, Yes normocephalic and Yes atraumatic Ears: external ears normal General nose exam: Normal external nose present Face and sinus: Yes normal facial exam Mouth: Normal oral and palatal mucosa present Throat: Yes posterior oropharynx normal Eyes General: appearance normal, both eyes and all related structures Neck Neck: Yes normal visual inspection, Yes no lymphadenopathy, Yes trachea midline and Yes supple Chest Chest palpation & inspection: normal inspection of the chest and normal palpation of entire chest wall Resp Effort & Inspection: normal respiratory effort and able to speak in complete sentences Auscultation: clear to auscultation bilaterally Cardio Rate: regular rate Rhythm: regular rhythm Heart sounds: S1 normal heart sound present, S2 normal heart sound present and no murmurs GI Other: Patient had moderate tenderness palpation of her suprapubic and left lower quadrant areas, normoactive bowel sounds, no rebound, no voluntary or involuntary guarding Palpation (GI): Guarding due to palpation present (GI) General: Yes no CVA tenderness Back/Spine/Pelvis Back: no CVA tenderness Skin General skin exam: no rashes or lesions noted Neuro Cognition (Neuro): normal cognition Motor exam (neuro): 5/5 motor strength present throughout Extrem General: Yes normal to inspection Psych Appearance: grossly normal Speech and movement: Normal speech and movement present Affect: normal affect Attitude: cooperative Medical Decision Making Medical Decision Making MDM Narrative: 33-year-old female who presents emergency department for evaluation of intermittent left flank and left lower quadrant pain x1 week, the pain came back at 01:00 hours and was severe, sharp and 10/10. Patient has noted urinary frequency and is urinating small amounts but no dysuria. She has not noticed any hematuria. Patient's exam did reveal suprapubic and left lower quadrant tenderness as well as left flank tenderness. I ordered a CBC, CMP, lipase, quantitative beta-hCG, urinalysis, CT scan of the abdomen pelvis without IV contrast. Patient was ordered to get Toradol 15 mg IV, Zofran 4 mg IV and normal saline x1 L. 0945: Urinalysis was positive for protein My interpretation patient's laboratory evaluation as follows: Anemia with an H&H of 11.6 and 35.4-this is chronic. Quantitative beta hCG was below detectable limits. CMP was normal. Urinalysis was positive for protein, leukocyte esterase. Microscopic revealed 11-20 WBCs greater than 20 epithelial cells, 3+ bacteria-this is not a clean-catch specimen. CT scan of the abdomen pelvis did not reveal a clear cause for the patient's symptoms. Lab Data 04/13/23 08:02 04/13/23 08:02 Labs: Lab Results 04/13/23 04/13/23 04/13/23 Range/Units 08:02 08:02 08:12 WBC 9.7 (4.8-10.8) X10*3/uL RBC 4.04 L (4.20-5.50) X10*6/uL Hgb 11.6 L (12.0-16.0) g/dl Hct 35.4 L (37.0-47.0) % MCV 87.6 (80.0-98.0) fL MCH 28.7 (27.0-33.0) pg MCHC 32.8 (31.0-35.0) g/dl RDW 13.6 (11.0-16.0) % Plt Count 246 (160-400) X10*3/uL MPV 9.5 (9.4-12.3) fL Immature Gran % (Auto) 0.3 (0.0-0.4) % Neut % (Auto) 77.5 H (45-73) % Lymph % (Auto) 14.9 L (20-40) % [place] % (Auto) 5.6 (2-11) % Eos % (Auto) 1.4 (0-4) % Baso % (Auto) 0.3 (0-2) % Lymph # (Auto) 1.5 (1.2-4.9) X10*3/uL [place] # (Auto) 0.5 (0.1-1.2) X10*3/uL Eos # (Auto) 0.1 (0.0-0.4) X10*3/uL Baso # (Auto) 0.0 (0.0-0.2) X10*3/uL Abs Immat Gran (auto) 0.03 (0.00-0.03) X10*3/uL Absolute Neuts (auto) 7.5 (2.0-8.3) x10*3/uL Absolute Nucleated RBC 0.000 (0.0-0.012) X10*3/uL Nucleated RBC % (auto) 0.0 (0.0-0.2) /100WBC Sodium 140 (135-145) mmol/L Potassium 4.3 (3.3-5.1) mmol/L Chloride 108 (96-108) mmol/L Carbon Dioxide 24 (22-29) mmol/L Anion Gap 12 (12-20) BUN 15 (9-16) mg/dL Creatinine 0.96 (0.5-1.4) mg/dL Estim Creat Clear Calc 119.4 Estimated GFR > 60 Random Glucose 104 (60-115) mg/dL Calcium 9.0 D (8.4-10.2) mg/dL Total Bilirubin 0.5 (0.0-1.0) mg/dL AST 13 (5-31) U/L ALT 12 (0-31) U/L Alkaline Phosphatase 52 (39-117) U/L Total Protein 6.9 (6.5-8.0) g/dL Albumin 3.7 (3.5-5.0) g/dL Lipase 25 (8-78) U/L Beta HCG, Quant < 2 mIU/mL Urine Color Yellow Urine Appearance Turbid Urine pH 5.5 (5.0-9.0) Ur Specific Bedias >= 1.030 H (1.005-1.025) Urine Protein 30 (1+) H (Neg-Trace) mg/dL Urine Glucose (UA) Negative (Negative) mg/dL Urine Ketones Trace (Negative) mg/dL Urine Blood Negative (Negative) Urine Nitrite Negative (Negative) Ur Leukocyte Esterase Moderate (2+) H (Negative) Urine RBC 0-2 (0-2) /HPF Urine WBC 11-20 H (0-5) /HPF Ur Squamous Epith Cells >20 (0-2) /HPF Other Crystals Present Urine Bacteria 3+ (None Seen) Hyaline Casts 0-2 (0-2) /LPF Medications Administered Discontinued Medications Generic Name Dose Route Start Last Admin Trade Name Bertha PRN Reason Stop Dose Admin Sodium Chloride 1,000 mls @ 999 mls/hr 04/13/23 07:47 04/13/23 09:46 Ns IV 04/13/23 08:47 Infused .Q1H1M STA Infusion Ketorolac Tromethamine 15 mg 04/13/23 07:47 04/13/23 08:09 Ketorolac Tromethamine 15 Mg/Ml Vial IVPUSH 04/13/23 07:48 15 mg ONCE STA Administration Ondansetron HCl 4 mg 04/13/23 07:47 04/13/23 08:09 Ondansetron Hcl 4 Mg/2 Ml Vial IVPUSH 04/13/23 07:48 4 mg ONCE ONE Administration Discharge Plan Discharge Clinical Impression: Left flank pain, Acute left lower quadrant pain, UTI (urinary tract infection) Patient Disposition: Home, Self-Care Instructions: Urinary Tract Infection in Women (ED), Flank Pain (ED) Additional Instructions: Your laboratory evaluation was unremarkable. Your test was negative. The CT scan of your abdomen pelvis without IV contrast did not reveal a clear cause for your pain. It is unclear if you have a urine infection based on urinalysis. I am going to treat you like you have a urinary tract infection to see if this improves your symptoms Take Keflex (cephalexin) 500 mg pills, 1 pill 3 times a day for 5 days. Take ibuprofen 200 mg pills, 2 pills every 6 hours as needed for pain. Take Tylenol (acetaminophen) 500 mg pills, 2 pills every 6 hours as needed for pain. Follow-up with your doctor in 2 days. Please return to the emergency department if your symptoms get worse or if you develop any symptoms that are concerning to you. Prescriptions: New cephalexin 500 mg capsule 500 mg PO TID 5 Days Qty: 15 0RF No Action ferrous sulfate [Feosol] 325 mg (65 mg iron) tablet 325 mg PO BID 30 Days Qty: 60 1RF levonorgestrel-ethinyl estrad 0.1-20 mg-mcg tablet 1 tab PO DAILY Qty: 84 4RF
[2023-04-13 10:00] VITALS: BP 132/69; PULSE 55; RESP 16; O2SAT 100
== END 2023-04-13 10:51 | disposition home or self-care (01) ==
PROVIDERS: Emergency Provider Emergency Medicine Emergency Medical Services; PCP Hospitalist
DX: N39.0 Urinary tract infection, site not specified (principal); R10.9 Unspecified abdominal pain; R10.32 Left lower quadrant pain
CPT/HCPCS: 36415; 74176; 80053; 81001; 83690; 84702; 85025; 87086; 96361; 96374; 96375; 99284; 99285; J1885; J2405

== ENCOUNTER 2024-10-25 09:12 | Emergency (ER) | payer OTHER, SELFPAY ==
--- NOTE | ~2024-10-25 | US_ITS ---
EXAMINATION: US OBSTETRICAL ULTRASOUND CLINICAL INFORMATION: Bleeding, first trimester . COMPARISON: None relevant. LMP: 08/22/2024. Gestational age by maternal dates is 9 weeks and 1 day. Estimated date of delivery by maternal dates is 05/29/2025.. TECHNIQUE: Ultrasound of the maternal pelvis is performed using transabdominal transducer. M-mode Doppler is also performed. FINDINGS: There is a single intrauterine gestational sac with visible yolk sac, embryo/fetus, and cardiac activity. There is no significant subchorionic hemorrhage or hematoma. HR: 180 beats per minute. CRL (crown rump length): 2.28 cm (9 weeks, 0 days, +/- 4 days). AMADOR (estimated date of delivery): 05/30/2025, +/- 4 days. There are no myometrial abnormalities seen. The cervix is closed. MATERNAL ADNEXA: The right maternal ovary measures 2.3 x 1.4 x 2.1 cm. It is sonographically normal. The left maternal ovary measures 4.3 x 2.2 x 2.5 cm. It is sonographically normal. There is a follicular cyst measuring 1.1 x 1.3 x 1.3 cm. There is no significant maternal adnexal mass. No maternal pelvic ascites. US/US OB <= 14 weeks fetus IMPRESSION: 1. Single intrauterine gestation with ultrasound gestational age of 9 weeks, 0 days +/- 4 days. No complication evident. 2. Estimated date of delivery is 05/30/2025 +/- 4 days. 3. No maternal adnexal mass or pelvic ascites. Electronically signed by: Ruddy Hollingsworth MD 10/25/2024 02:13 PM [facility]
[2024-10-25 09:29] VITALS: BP 127/60; PULSE 75; RESP 18; TEMP 36.7; O2SAT 99; BMI 36.0
[2024-10-25 09:52] LABS: MANUAL DIFF FLAG NO
[2024-10-25 10:04] LABS: Basophils Percent Auto 0.4 % (0-2); Eosinophils Percent Auto 0.4 % (0-4); Hematocrit 34.8 % (37.0-47.0); Hemoglobin 12.5 g/dl (12.0-16.0); Imm Gran Abs Auto 0.03 X10*3/uL (0.00-0.03); Imm Gran Pct Auto 0.3 % (0.0-0.4); Lymphocytes Absolute Auto 1.4 X10*3/uL (1.2-4.9); Lymphocytes Percent Auto 14.4 % (20-40); Mean Corpuscular HGB Conc 35.9 g/dl (31.0-35.0); Mean Corpuscular Hemoglobin 32.1 pg (27.0-33.0); Mean Corpuscular Volume 89.2 fL (80.0-98.0); Mean Platelet Volume 9.7 fL (9.4-12.3); Monocytes Absolute Auto 0.5 X10*3/uL (0.1-1.2); Monocytes Percent Auto 4.8 % (2-11); Neutrophils Absolute Auto 7.8 x10*3/uL (2.0-8.3); Neutrophils Percent Auto 79.7 % (45-73); Platelet Count 242 X10*3/uL (160-400); Red Cell Distribution Width 12.5 % (11.0-16.0); White Blood Count 9.8 X10*3/uL (4.8-10.8)
[2024-10-25 10:15] LABS: Alanine Aminotransferase 11 U/L (0-31); Albumin Level 3.9 g/dL (3.5-5.0); Alkaline Phosphatase 37 U/L (39-117); Anion Gap 11 (12-20); Aspartate Amino Transferase 18 U/L (5-31); Bilirubin Total 0.6 mg/dL (0.0-1.0); Blood Urea Nitrogen 9 mg/dL (9-16); Calcium 9.1 mg/dL (8.4-10.2); Carbon Dioxide 25 mmol/L (22-29); Chloride 106 mmol/L (96-108); Creatinine Clr Calc Pharmacy 143.8; Estimated Glomerular Filt Rate > 60; Glucose Random 91 mg/dL (60-115); Potassium 4.2 mmol/L (3.3-5.1); Sodium 138 mmol/L (135-145); Total Protein 7.2 g/dL (6.5-8.0)
[2024-10-25 10:36] LABS: HCG Quantitative 161499 mIU/mL
[2024-10-25 11:12] VITALS: BP 130/83; PULSE 78; RESP 18; TEMP 36.4; O2SAT 100
--- NOTE | 2024-10-25 11:34 | ED_ITS ---
HPI - General Chief complaint: Vaginal Bleeding Stated complaint: Vaginal bleeding, pt Time Seen by Provider: 10/25/24 11:19 Source: patient, RN notes reviewed and old records reviewed Mode of arrival: ambulatory History of Present Illness ED Provider: Luz Maria Vizcaino PA-C [facility] Narrative: 34-year-old female with a past medical history obesity, at about 8 weeks gestation presenting to the ED complaining bright red/pink vaginal bleeding/spotting x early this morning. Reports mild lower abdominal discomfort. LMP 08/21/2024. Denies fever, chills, nausea/vomiting, vaginal discharge, dysuria/hematuria, lightheadedness/dizziness Related Data Previous Rx's ?Medication ?Instructions ?Recorded levonorgestrel-ethinyl estradiol 1 tab PO DAILY #84 tabs 03/13/21 0.1 mg-20 mcg tablet ferrous sulfate 325 mg (65 mg 325 mg PO BID 1 month #60 tabs 08/31/21 iron) tablet (Feosol) cephalexin 500 mg capsule 500 mg PO TID 5 days #15 caps 04/13/23 Allergies Allergy/AdvReac Type Severity Reaction Status Date / Time No Known Allergies Allergy Verified 10/25/24 09:32 Review of Systems 2 Review of Systems: Yes all other systems are reviewed and are negative Constitutional: Constitutional: Reports as per [facility] Past Medical History Attestation statement: The following information was validated with the patient. Source: old records reviewed Surgical History No pertinent past surgical history Family History Family History Father No problems noted. Mother Diabetes Hypertension Sister In good health Brother In good health Social History Social History Alcohol intake: never Advance Directives: No Do you have a plan to hurt others: No Plan Gender identity: Female Physical Exam 2 Vital Signs: Vital Signs: Last Vital Signs Temp 97.6 F 10/25/24 11:12 Pulse 78 10/25/24 11:12 Resp 18 10/25/24 11:12 BP 130/83 10/25/24 11:12 Pulse Ox 100 10/25/24 11:12 O2 Del Method Room Air 10/25/24 11:12 BMI result Body Mass Index 36.0 Const: General: cooperative, healthy appearing and no acute distress O rientation/consciousness: patient oriented x3 Limitations: no limitations HEENT: Head: Yes normal to inspection and Yes atraumatic Ears: hearing grossly normal bilaterally General nose exam: Normal external nose present Face and sinus: Yes normal facial exam Eyes: General: appearance normal, both eyes and all related structures EOM: EOMs intact bilaterally Neck: Neck: Yes normal visual inspection and Yes no meningeal signs Resp: Effort & Inspection: normal respiratory effort and no respiratory distress Cardio: Rate: regular rate GI: Inspection: Yes normal to inspection Palpation (GI): Soft to palpation, nontender, no guarding and not rigid : Other: On pelvic exam dark vaginal bleeding noted in vault. No active bleeding. No masses or clots. Os closed, no CMT or adnexal tenderness General: Yes no CVA tenderness Back/Spine/Pelvis: Back: no CVA tenderness Skin: Rashes: no rashes Wounds: no wounds Neuro: General: patient oriented x3, tone normal and no meningeal signs C ranial nerves: Yes CN's II-XII intact bilaterally Gait exam (Neuro): Normal gait present Extrem: General: Yes normal to inspection Course Course Course Narrative: -1423-- H&H stable. Labs otherwise reassuring. HCG 161,499 US OB <= 14 weeks fetus IMPRESSION: 1. Single intrauterine gestation with ultrasound gestational age of 9 weeks, 0 days +/- 4 days. No complication evident. 2. Estimated date of delivery is 05/30/2025 +/- 4 days. 3. No maternal adnexal mass or pelvic ascites. > results discussed with patient with radiosonde operator recommended repeat HCG in 48 hours. Threatened signs/symptoms return precautions discussed. Results discussed with patient including worrisome signs and symptoms and strict return precautions, and when to return to the emergency department. They verbalized understanding and feel safe for discharge at this time. -1432--bacteria vaginosis panel came back positive for BV. Medical Decision Making Medical Decision Making [facility] Narrative: 34-year-old female with a past medical history obesity, at about 8 weeks gestation presenting to the ED complaining bright red/pink vaginal bleeding/spotting x early this morning. On exam vital signs stable, NAD, nontoxic appearing, abdomen soft/nontender. On pelvic exam dark vaginal bleeding noted in vault, no active bleeding. Os closed. No CMT or adnexal tenderness/masses. Concern for early/normal vs threatened/missed vs ectopic . Lower suspicion for ovarian torsion/STI or UTI at this time. Plan: Labs, UA, ultrasound, re-evaluate Please refer to course for remaining clinical decision making, interpretation of labs/imaging results, and discussions with consultants and/or family members. Differential Diagnosis Differential Diagnoses: The differential diagnosis associated with the presentation includes As above Admission/Observation Consideration of admission/observation: Escalation of care including admission/observation considered Lab Data MDM Lab Attestation statement: I reviewed the patient's lab results. 10/25/24 09:49 10/25/24 09:49 Labs: Lab Results 10/25/24 10/25/24 10/25/24 Range/Units 09:49 11:41 12:51 WBC 9.8 (4.8-10.8) X10*3/uL RBC 3.90 L (4.20-5.50) X10*6/uL Hgb 12.5 (12.0-16.0) g/dl Hct 34.8 L (37.0-47.0) % MCV 89.2 (80.0-98.0) fL MCH 32.1 (27.0-33.0) pg MCHC 35.9 H (31.0-35.0) g/dl RDW 12.5 (11.0-16.0) % Plt Count 242 (160-400) X10*3/uL MPV 9.7 (9.4-12.3) fL Immature Gran % (Auto) 0.3 (0.0-0.4) % Neut % (Auto) 79.7 H (45-73) % Lymph % (Auto) 14.4 L (20-40) % [place] % (Auto) 4.8 (2-11) % Eos % (Auto) 0.4 (0-4) % Baso % (Auto) 0.4 (0-2) % Lymph # (Auto) 1.4 (1.2-4.9) X10*3/uL [place] # (Auto) 0.5 (0.1-1.2) X10*3/uL Eos # (Auto) 0.0 (0.0-0.4) X10*3/uL Baso # (Auto) 0.0 (0.0-0.2) X10*3/uL Abs Immat Gran (auto) 0.03 (0.00-0.03) X10*3/uL Absolute Neuts (auto) 7.8 (2.0-8.3) x10*3/uL Absolute Nucleated RBC 0.000 (0.0-0.012) X10*3/uL Nucleated RBC % (auto) 0.0 (0.0-0.2) /100WBC Sodium 138 (135-145) mmol/L Potassium 4.2 (3.3-5.1) mmol/L Chloride 106 (96-108) mmol/L Carbon Dioxide 25 (22-29) mmol/L Anion Gap 11 L (12-20) BUN 9 (9-16) mg/dL Creatinine 0.72 (0.5-1.4) mg/dL Estim Creat Clear Calc 143.8 Estimated GFR > 60 Random Glucose 91 (60-115) mg/dL Calcium 9.1 (8.4-10.2) mg/dL Magnesium 1.9 (1.6-2.6) mg/dL Total Bilirubin 0.6 (0.0-1.0) mg/dL AST 18 (5-31) U/L ALT 11 (0-31) U/L Alkaline Phosphatase 37 L (39-117) U/L Total Protein 7.2 (6.5-8.0) g/dL Albumin 3.9 (3.5-5.0) g/dL Lipase 11 (8-78) U/L Beta HCG, Quant 569896 mIU/mL T. vaginalis (PCR) NOT DETECTED (Not Detect) Bact vaginosis (PCR) POSITIVE A (Negative) C. krusei/glabrata (PCR) NOT DETECTED (Not Detect) Sheryl group (PCR) NOT DETECTED (Not Detect) Blood Type O Positive Independent Interpretation I performed an independent interpretation of an: Ultrasound Radiology Impression Discussion of test interpretation with radiology: I have reviewed the radiologist's reading. External Record Review External record reviewed: Inpatient record, Office record, Outpatient record, Prior outpatient labs, Prior outpatient radiology, Primary care record and Outside ED record Tests considered The following testing was considered but not selected: As above Prescription Management I considered prescription management with: Pain Medication Social Determinants Patient?s care significantly limited by Social Determinants of Health including: Other Social Determinant of Health Discharge Plan Discharge Clinical Impression: Vaginal bleeding affecting early Patient Disposition: Home, Self-Care Instructions: (ED) Additional Instructions: Your ultrasound confirms a single intrauterine measuring 9 weeks 0 days with estimated delivery of 05/30/2025 With bleeding during we worry about a threatened miscarriage, YOU NEED REPEAT BLOOD WORK, HCG, IN 2 DAYS You should have repeat ultrasound in 1 week YOU NEED TO HAVE CLOSE FOLLOW-UP WITH OBGYN. IF YOU DEVELOP PERSISTENT OR WORSENING PAIN, BLEEDING DISCHARGE, YOU ARE UNABLE TO EAT OR DRINK/HI PERSISTENT NAUSEA/VOMITING RETURN TO THE ED IMMEDIATELY Prescriptions: No Action ferrous sulfate [Feosol] 325 mg (65 mg iron) tablet 325 mg PO BID 30 Days Qty: 60 1RF cephalexin 500 mg capsule 500 mg PO TID 5 Days Qty: 15 0RF levonorgestrel-ethinyl estrad 0.1-20 mg-mcg tablet 1 tab PO DAILY Qty: 84 4RF Referrals: [facility] [place] Group] - 2 days Stand Alone Forms: Work/School Release Print Language: Mosotho
[2024-10-25 11:55] LABS: Lipase 11 U/L (8-78); Magnesium 1.9 mg/dL (1.6-2.6)
[2024-10-25 14:29] LABS: Bacterial Vaginosis PCR POSITIVE (Negative); Candida Group PCR NOT DETECTED (Not Detect); Candida glab krusei PCR NOT DETECTED (Not Detect); Trichomonas vaginalis PCR NOT DETECTED (Not Detect)
[2024-10-25 15:01] LABS: CT PCR NOT DETECTED (Not Detect.); NG PCR NOT DETECTED (Not Detect.)
== END 2024-10-25 14:50 | disposition home or self-care (01) ==
PROVIDERS: Physician Assistant; Emergency Provider Student in an Organized Health Care Education/Training Program; PCP Hospitalist
DX: O20.9 Hemorrhage in early pregnancy, unspecified (principal); R10.2 Pelvic and perineal pain; Z3A.08 8 weeks gestation of pregnancy; Z79.899 Other long term (current) drug therapy
CPT/HCPCS: 0352U; 36415; 76801; 80053; 83690; 83735; 84702; 85025; 86900; 86901; 87491; 87591; 99283; 99284

== ENCOUNTER → 2024-10-25 11:24 | Outpatient (BNV) | payer OTHER, SELFPAY | PROVIDERS: Emergency Provider Student in an Organized Health Care Education/Training Program; PCP Hospitalist; Visit Provider Radiology Diagnostic Radiology | DX: O26.851 Spotting complicating pregnancy, first trimester (principal); Z3A.09 9 weeks gestation of pregnancy | CPT/HCPCS: 76801; 76827 ==